=== PATIENT | female | born 1945 | race Caucasian/White ===

== ENCOUNTER → 2024-03-01 06:21 | Day surgery (SDC) | payer BC, SELFPAY | LOC: GI 06:21 | PROVIDERS: ATTENDING PHYSICIAN Internal Medicine Gastroenterology | DX: K29.50 Unspecified chronic gastritis without bleeding (principal); K22.70 Barrett's esophagus without dysplasia; K31.A0 Gastric intestinal metaplasia, unspecified; K31.7 Polyp of stomach and duodenum; K31.89 Other diseases of stomach and duodenum; Q39.8 Other congenital malformations of esophagus; R12 Heartburn; Z80.0 Family history of malignant neoplasm of digestive organs | CPT/HCPCS: 43239; 88305; 88342 ==

== ENCOUNTER 2024-04-15 09:45 | Day surgery (SDC) | payer BC, SELFPAY ==
[2024-04-15 10:45] VITALS: BMI 32.2
[2024-04-15 10:46] VITALS: BMI 32.2
[2024-04-15 10:57] VITALS: BP 129/75
[2024-04-15 12:03] VITALS: BP 102/49
[2024-04-15 12:15] VITALS: BP 110/71
[2024-04-15 12:23] VITALS: BP 107/77
== END 2024-04-15 12:30 | disposition home or self-care (01) ==
LOC: GI 09:45
PROVIDERS: ATTENDING PHYSICIAN Internal Medicine Gastroenterology
DX: K44.9 Diaphragmatic hernia without obstruction or gangrene (principal); K31.7 Polyp of stomach and duodenum
CPT/HCPCS: 43251; 88305

== ENCOUNTER → 2024-07-15 13:09 | Outpatient (REF) | payer BC, SELFPAY | LOC: RAD 13:09 | PROVIDERS: ATTENDING PHYSICIAN Emergency Medicine; FAMILY PHYSICIAN Family Medicine | DX: S29.9XXA Unspecified injury of thorax, initial encounter (principal) | CPT/HCPCS: 71101 ==

== ENCOUNTER 2024-07-21 13:21 | Emergency (ER) | payer BC, SELFPAY ==
[2024-07-21 13:32] VITALS: BP 150/92
[2024-07-21 14:02] VITALS: BMI 31.4
[2024-07-21 14:07] VITALS: BP 138/91
--- NOTE | 2024-07-21 14:08 | EDRN ---
Pt states that her pain started on the Thursday prior to the , when she went to urgent care for R sided chest pain at base of anterior ribs, when she awoke from a nap she had on the sofa. Pt had a normal xray at . Pain has kept getting worse
and saw her PCP on Thursday. Dr. Shea treated it as a M-S pain and placed her on mild narcotic and then placed her on steriods. Pt has been talking to PCP daily and was advised today to come to ER. PCP trying to get her an ABD US but she will have
to await 3 weeks. Pain is now 8/10, goes up to 10/10 sitting or lying. Better when pt is standing. Pt describes it as severe and chronic.
--- NOTE | 2024-07-21 15:02 | ED.GENMED ---
History of Present Illness
General
Chief Complaint: Chest Problem
Source: patient and spouse
Exam Limitations: none
Time Seen by Provider: 07/21/24 15:00
Nursing documentation reviewed up to this point in time: agreed with
History of Present Illness
History of Present Illness:
78-year-old female presents emergency room complaining of pain under her right breast and radiating to her back for the past week. She saw her primary care, had chest x-ray, was prescribed a steroid and pain medication. She has had shingles in the
past, and this is similar.
Past History
Past History
ED Past Medical History: Cancer (Breast), GERD, HTN, Hypercholesterolemia, Other (Renal calculi) and Other (Shingles)
ED Past Surgical History: Gynecological (Tubal ligation, D and E), Tonsilectomy and Other (Cystectomy, oral surgery)
Social History
Tobacco: Non-smoker
Alcohol: None
Drug: None
Personal:
Living: with family
Review of Systems
Review of Systems
Allergies reviewed?: Yes
All Other Systems: Not applicable
Constitutional: Reports no symptoms
EENT: Reports no symptoms
Respiratory: Reports no symptoms
Cardiac: Reports no symptoms
ABD/GI: Reports no symptoms
: Reports no symptoms
Musculoskeletal: Reports other (right rib pain)
Skin: Reports rash
Neurological: Reports no symptoms
Endocrine: Reports no symptoms
Hematologic/Lymphatic: Reports no symptoms
Psychiatric: Reports no symptoms
Phy Exam
Physical Exam
Physical Exam:
Physical Exam
General: no apparent distress, not acutely ill
Neck: supple. no meningeal signs. normal posterior pharynx
Heart: s1/s2 regular rate and rhythm, no murmur. equal radial
pulses.
HEENT: Pupils equal round reactive to light, EOMI
Lungs: no acute respiratory distress. clear bilaterally
Abdomen: normal bowel sounds. not tender. no CVAT
Neuro: alert and oriented. no focal neurological deficits cranial nerves II through XII intact
Skin: Dermatomal rash right chest and back, vesicular/papular
Psychiatric: well kept. interactive and cooperative
Extremities: no edema. no calf tenderness. negative homans. good distal pulses
Course
Orders/Labs/Results
Orders:
Orders
07/21/24 13:22
Electrocardiogram (*1) Urgent
Reason for Study: Other
Other Reason for Exam: back pain
07/21/24 13:23
EKG- Treatment ONCE
Vital Signs
Initial and Last Documented VS:
Initial Vital Signs
Temp Pulse Resp BP Pulse Ox
98.3 F 87 18 150/92 97
07/21/24 13:32 07/21/24 13:32 07/21/24 13:32 07/21/24 13:32 07/21/24 13:32
Last Documented Vital Signs
Temp Pulse Resp BP Pulse Ox
98.3 F 86 16 138/91 99
07/21/24 13:32 07/21/24 14:07 07/21/24 14:07 07/21/24 14:07 07/21/24 14:07
MDM/Problems Addressed
Differential Diagnosis Includes:
Rib fracture, ACS
MDM/Problems Addressed:
78-year-old female with right-sided shingles. Do not suspect dissection or PE. Stable for discharge. Treat with Valtrex.
*Pulse Oximetry
Patient hypoxic: no
*EKG
Interpreted by ED Provider?: Yes
EKG Intrepretation Date: 07/21/24
EKG Intrepretation Time: 13:30
Interpretation: normal
Comparison EKG: no comparison EKG present
Heart Rate: 83
Rate: normal
Rhythm: sinus
Alfred Station: normal axis
Interval: normal interval
QRS Pattern: normal QRS
Ischemia: no ischemia
*Critical Care Note
Total Time (30-74mins, 75-104mins- exclusive of procedures): Not Applicable
Data Reviewed
Review of Other/Old Records Reveals: Radiology Studies (Rib series 07/15/2024, no acute findings)
Patient Management
Social determinants of health affecting care: Living situation
Escalation/DeEscalation of care consider admission/obs:
Admit not indicated
ED Attending Note
-
Portions of this chart may have been created with voice recognition software.� Occasional wrong word or��sound alike� substitutions may have occurred due to the inherent limitations of voice recognition software.
Discharge Plan
Departure
Patient Disposition: Home (Routine Discharge)
Date of Disposition: 07/21/24
Time of Disposition: 15:22
Patient with high blood pressure during this ER visit?: Yes
Condition: Good
Discharge Problem:
Shingles
Instructions: Shingles, BLOOD PRESSURE
Prescriptions:
New
valacyclovir [Valtrex] 1 gram tablet
1,000 mg PO TID Qty: 30 0RF
gabapentin [Neurontin] 300 mg capsule
300 mg PO TID PRN (Reason: pain) Qty: 30 0RF
No Action
primidone 50 mg Tablet
50 mg PO HS
famotidine 40 mg Tablet
40 mg PO DAILY
simvastatin 20 mg Tablet
20 mg PO DAILY
lisinopril 20 mg Tablet
20 mg PO DAILY
hydrochlorothiazide 25 mg Tablet
25 mg PO DAILY
diltiazem HCl 180 mg Capsule,Extended Release 24 Hr
180 mg PO DAILY
omeprazole 20 mg Capsule,Delayed Release(Dr/Ec)
20 mg PO DAILY
valacyclovir 1 gram Tablet
1,000 mg PO DAILY
Referrals:
Elvin Valentine DO [Family Provider] -
Interventions
Interventions:
*Risk Screen - Suicide Last Done: 07/21/24 13:32
*General Assessment Last Done: 07/21/24 14:02
*Neglect/Abuse Screening Last Done: 07/21/24 14:02
ED- Fall Risk Assessment Last Done: 07/21/24 14:02
*ED COVID-19 Vaccine History Last Done: 07/21/24 14:02
ED- Cardiac Assessment Last Done: 07/21/24 14:19
ED- Pulmonary Assessment Last Done: 07/21/24 14:19
Discharge Date and Time
Print Language: PERSIAN
--- NOTE | 2024-07-21 15:07 | EDRN ---
Dr. Garcia in room w/ pt at this time.
[2024-07-21 15:34] VITALS: BP 146/104
== END 2024-07-21 15:36 | disposition home or self-care (01) ==
LOC: EMR 13:21
PROVIDERS: EMERGENCY PHYSICIAN Emergency Medicine; FAMILY PHYSICIAN Family Medicine
DX: B02.9 Zoster without complications (principal); K21.9 Gastro-esophageal reflux disease without esophagitis; I10 Essential (primary) hypertension; E78.00 Pure hypercholesterolemia, unspecified; Z85.3 Personal history of malignant neoplasm of breast; Z98.51 Tubal ligation status
CPT/HCPCS: 99283; 93005

== ENCOUNTER 2024-07-24 19:24 | Emergency (ER) | payer BC, SELFPAY ==
[2024-07-24 19:30] VITALS: BP 123/75
--- NOTE | 2024-07-24 20:26 | ED.GENMED ---
History of Present Illness
General
Chief Complaint: Flank Pain
Source: patient and spouse
Exam Limitations: none
Time Seen by Provider: 07/24/24 20:06
History of Present Illness
History of Present Illness:
This is a 78 year old female that comes in with c/o right sided 'extreme' pain under her breast and back. States that she was seen here on the and told that this was shingles. Patient has shingles before and states that this doesn't feel like
shingles. States that her pain is a 15/10. States that the pain has moved an it is in the upper back and under her breast. Sate that she has discomfort with deep breathing. Patient has been on Valtrex and gabapentin 300mg TID and this is not
helping. States that she has also taken Tylenol 500mg. States that she has pain in the middle of her chest and back and it goes up the back. States that she is feeling unsteady on her feet. Denies any fever, chills, chest pain, SOB, abd pain,
nausea, vomiting, diarrhea, headache, dizziness, urinary burning
Past History
Past History
ED Past Medical History: Cancer (Breast), GERD, HTN, Hypercholesterolemia and Other (Renal calculi, Tremors, Glaucoma, Shingles)
ED Past Surgical History: Gynecological (Tubal ligation, D and E), Tonsilectomy and Other (Cystectomy, oral surgery, Bilateral mastectomy with transflap and reconstruction. )
Social History
Tobacco: Non-smoker
Alcohol: Daily (Wine 2 glasses)
Drug: None
Personal:
Living: with family
Review of Systems
Review of Systems
All Other Systems: ROS reviewed and negative except as documented in HPI and ROS
Constitutional: Reports no symptoms; Denies fever or chills
EENT: Reports no symptoms
Respiratory: Denies cough or trouble breathing
Cardiac: Reports chest pain (into back)
ABD/GI: Reports constipated; Denies abdominal pain, nausea, vomiting or diarrhea
: Reports no symptoms; Denies dysuria, frequency or urgency
Musculoskeletal: Reports no symptoms
Skin: Reports no symptoms
Neurological: Reports other (Feels unsteady); Denies dizzy or headache
Psychiatric: Reports no symptoms
Phy Exam
General Physical Exam
General Presentation: mild distress
General age: appears stated age
General Skin: warm and dry
General Habitus: elderly
General Mental: alert
General Hydration: appears well hydrated
ENT Exam
ENT Exam: TM's normal, pharynx normal and neck supple
Eye Exam
Eye Exam: EOMI
Cardiovascular Exam
Cardiovascular Exam: regular rate/rhythm, no edema and normal peripheral pulses
Pulmonary Exam
Pulmonary Exam: lungs clear, no respiratory distress, no rales, chest non tender, no crackles, no rhonchi, no wheezing and no cough
Gastrointestinal Exam
Gastrointestinal Exam: normal bowel sounds, non tender, soft, no organomegaly, no pulsatile mass and non distended
Musculoskeletal Exam
Musculoskeletal Exam: full ROM and no edema
Skin Exam
Skin Exam: normal color, warm/dry, no rash (NO shingles rash noted on the right flank or under her breast), no petechia and other
Psychiatric Exam
Psychiatric Exam: normal mood/affect
Course
Orders/Labs/Results
Orders:
Orders
07/24/24 19:32
Electrocardiogram (*1) Urgent
Reason for Study: Chest Pain
EKG- Treatment ONCE
07/24/24 20:24
US Abdomen Complete/Upper Urgent
Comment:
Reason For Exam: Upper abd into back pain
07/24/24 20:25
HYDROmorphone [Dilaudid] 0.5 mg IV NOW STA
Ondansetron Injectable [Zofran] 4 mg IV NOW STA
CR Chest - 2 Views Urgent
Comment:
Reason For Exam: Pain right chest
07/24/24 20:52
Complete Blood Count/With Diff Urgent
Comprehensive Metabolic Panel Urgent
D-Dimer Urgent
Troponin I Urgent
07/24/24 22:37
HYDROmorphone [Dilaudid] 1 mg .ROUTE .STK-MED ONE
07/24/24 22:42
HYDROmorphone [Dilaudid] 1 mg IV NOW STA
07/25/24 00:00
CT Chest Pe Study Urgent
Reason For Exam: right sided chest pain, elevated -dimer
Abnormal Lab Results
07/24/24
20:52
RBC 3.58 L 10^6/uL
(4.20-5.40)
MCV 103.9 H fL
(81.0-99.0)
MCH 35.8 H pg
(27.0-31.0)
D-Dimer 0.87 H ug/mlFEU
(0.00-0.50)
BUN 34 H mg/dl
(7-17)
Creatinine 1.2 H mg/dL
(0.6-1.0)
Glucose 108 H mg/dl
(70-99)
07/24/24 20:52
07/24/24 20:52
Anemia. D-dimer elevation. Dehydration. Glucose nonfasting. Troponin <0.012, D-dimer 0.87,
Vital Signs
Initial and Last Documented VS:
Initial Vital Signs
Temp Pulse Resp BP Pulse Ox
98.1 F 88 18 123/75 95
07/24/24 19:30 07/24/24 19:30 07/24/24 19:30 07/24/24 19:30 07/24/24 19:30
Last Documented Vital Signs
Temp Pulse Resp BP Pulse Ox
98.1 F 73 13 111/67 96
07/24/24 19:30 07/25/24 00:45 07/25/24 00:45 07/25/24 00:00 07/25/24 00:45
MDM/Problems Addressed
Differential Diagnosis Includes:
Gallbladder disease PE, PNA
MDM/Problems Addressed:
This is a 78 year old female that comes in with c/o right under her breast and mid back and upper back pain. States that she has pain with deep breathing. States that she was told that this is most likely shingles.
Will check labs, Chest x-ray. Medicate for pain and get Ultrasound.
back into see patient. Explained that her blood work shows that she is a little anemic and that she is dehydrated. Patient D-dimer is elevated. Will get CT of the chest to r/o a PE.
Into see patient. Explained that her US is normal along with her CT of the chest. patient is negative for PE. Aortic dissection and there are no no gallstones or renal calculus. Explained to patient that this may still be Shingles and the rash has
just not come out as shingles affects the nerve endings. Patient to continue with the Valtrex as directed. Explained that she can alternate with Tylenol and Ibuprofen for pain. Will give patient a prescription for Oxycodone for stere pain. Patient
to follow up with the family doctor. Return with any concerns.
Chronic conditions affecting care: Cancer
Acute Exacerbation and/or Progression of Chronic Illness:
NA
*Radiology
Radiology exam reviewed: radiology read reviewed (US night hawk- No gallbladder wall thickening. CBD measures up to 4mm. Gallbladder wall measures up to 2mm. No pericholecystic fluid. No other acute abnormality within the visualized abdomen or
pelvis. CT night hawk- Adequate technical study. No acute pulmonary embolism. No thoracic aortic) and all reviewed NAD by ED Provider (CT cont- No thoracic aortic aneurysm or acute aortic dissection. Bibasilar atelectasis. Incidentals: Calcified
coronary atherosclerosis. No acute osseous abnormality. NO acute abnormality within the visualized abdomen. No Thoracic lymphadenopathy or suspicious lymph nodes. )
*Pulse Oximetry
Patient hypoxic: no
*Critical Care Note
Total Time (30-74mins, 75-104mins- exclusive of procedures): Not Applicable
ED Attending Note
-
Portions of this chart may have been created with voice recognition software.� Occasional wrong word or��sound alike� substitutions may have occurred due to the inherent limitations of voice recognition software.
Discharge Plan
Departure
Patient Disposition: Home (Routine Discharge)
Date of Disposition: 07/25/24
Time of Disposition: 01:10
Patient with high blood pressure during this ER visit?: No
Condition: Good
Covid-19: Not Applicable
Discharge Problem:
Acute right flank pain
Instructions: Flank Pain (DC)
Prescriptions:
New
oxycodone 5 mg tablet
5 mg PO Q6H PRN (Reason: Pain) Qty: 10 0RF
ondansetron 4 mg tablet,disintegrating
4 mg PO Q8H PRN (Reason: nausea and vomiting) Qty: 10 0RF
No Action
primidone 50 mg Tablet
50 mg PO HS
famotidine 40 mg Tablet
40 mg PO DAILY
simvastatin 20 mg Tablet
20 mg PO DAILY
lisinopril 20 mg Tablet
20 mg PO DAILY
hydrochlorothiazide 25 mg Tablet
25 mg PO DAILY
diltiazem HCl 180 mg Capsule,Extended Release 24 Hr
180 mg PO DAILY
omeprazole 20 mg Capsule,Delayed Release(Dr/Ec)
20 mg PO DAILY
valacyclovir 1 gram Tablet
1,000 mg PO DAILY
valacyclovir [Valtrex] 1 gram tablet
1,000 mg PO TID Qty: 30 0RF
gabapentin [Neurontin] 300 mg capsule
300 mg PO TID PRN (Reason: pain) Qty: 30 0RF
Referrals:
Colleen Preciado MD [Family Provider] - Follow up in 2-3 days
Activity Restrictions/Additional Instructions:
As discussed, your blood work shows some anemia. You are also dehydrated. Please increase your water intake to 8-8oz glasses daily. Your Ultrasound and CT of the chest is normal. This may still be pain due to shingles but no rash has erupted yet.
Please continue with the Valtrex that you were given. You may also use Tylenol 1000mg every 6 hours for pain and alternate with Ibuprofen 600mg every 6 hours with food. So if you take Tylenol at 9am, take the Ibuprofen at 12noon, Tylenol again at
3pm and Ibuprofen at 6pm and so forth. You have also had a prescription for Oxycodone sent to your pharmacy. PLEASE EAT BEFORE TAKING. . PLEASE ONLY USE THIS FOR SEVERE PAIN. PLEASE NO ALCOHOL WHEN TAKING OR DRIVING. A prescription for zofran to
help with any nausea/vomiting was also sent to your pharmacy. Follow up with the family doctor for recheck. IF YOU HAVE INCREASED OR CHANGING PAIN, OR YOU HAVE ANY OTHER CONCERNS PLEASE RETURN TO THE EMERGENCY ROOM.
Interventions
Interventions:
*Risk Screen - Suicide Last Done: 07/24/24 19:30
*General Assessment Last Done: 07/24/24 19:30
*Neglect/Abuse Screening Last Done: 07/24/24 19:30
ED- Fall Risk Assessment Last Done: 07/24/24 21:00
*ED COVID-19 Vaccine History Last Done: 07/24/24 20:39
TS-Nhsxib-[id number] Assessment Last Done: 07/24/24 21:00
ED-Female Genitourinary Assessment Last Done: 07/24/24 21:00
ED-Skin Assessment Last Done: 07/24/24 21:00
Discharge Date and Time
Print Language: MACEDONIAN
[2024-07-24 20:38] VITALS: BMI 35.0
[2024-07-24] MEDS: DILAUDID 0.5 MG IV (20:48)
[2024-07-24] MEDS: ZOFRAN 4 MG IV (20:48)
[2024-07-24 20:59] LABS: % Basophils 0.4 % (0-2); % Eosinophils 1.2 % (0-6); % Immature Granulocytes 0.3 % (0-0.5); % Lymphocytes 37.1 % (20.5-51.1); % Monocytes 7.5 % (1.7-9.3); % Neutrophils 53.5 % (42.2-75.2); Absolute Eosinophils 0.1 10^3/uL (0-0.7); Absolute Lymphocytes 2.7 10^3/uL (1.2-3.4); Absolute Monocytes 0.6 10^3/uL (0.1-0.6); Absolute Neutrophils 3.9 10^3/uL (1.4-6.5); Hematocrit 37.2 % (37.0-47.0); Hemoglobin 12.8 g/dL (12.0-16.0); Mean Corp Hgb Conc. 34.4 g/dL (33.0-37.0); Mean Corpuscular Hgb 35.8 pg (27.0-31.0); Mean Corpuscular Volume 103.9 fL (81.0-99.0); Mean Platelet Volume 9.1 fL (7.4-10.4); Nucleated Red Blood Cells % 0 %; Platelet Count 213 10^3/uL (130-400); Red Blood Cell Count 3.58 10^6/uL (4.20-5.40); Red Cell Dist. Width 11.9 % (11.5-14.5); White Blood Cell Count 7.3 10^3/uL (4.8-10.8)
[2024-07-24 21:13] LABS: ALT (SGPT) 30 U/L (0-35); AST (SGOT) 19 U/L (14-36); Albumin 4.3 g/dl (3.5-5.0); Alkaline Phosphatase 73 U/L (38-126); Blood Urea Nitrogen 34 mg/dl (7-17); Calcium 9.1 mg/dl (8.4-10.2); Carbon Dioxide 27 mmol/L (22-30); Chloride 104 mmol/L (98-107); Estimated Creatinine Clearance 43 ml/min; Glucose 108 mg/dl (70-99); Potassium 4.4 mmol/L (3.5-5.1); Sodium 139 mmol/L (135-145); Total Bilirubin 0.2 mg/dl (0.2-1.3); Total Protein 6.4 g/dl (6.3-8.2); eGFR 46.62
[2024-07-24 21:20] LABS: D-Dimer 0.87 ug/mlFEU (0.00-0.50)
[2024-07-24 21:25] LABS: Troponin I < 0.012 ng/ml
[2024-07-24 22:00] VITALS: BP 118/59
[2024-07-24] MEDS: DILAUDID 1 MG IV (22:43)
[2024-07-25] VITALS: BP 111/67
[2024-07-25 01:00] VITALS: BP 112/69
[2024-07-25] MEDS: ZOFRAN 4 MG IV (01:11)
[2024-07-25] MEDS: ROXICODONE 5 MG PO (01:13)
== END 2024-07-25 01:28 | disposition home or self-care (01) ==
LOC: EMR 19:24
PROVIDERS: Clinical Nurse Specialist Family Health; EMERGENCY PHYSICIAN Emergency Medicine; FAMILY PHYSICIAN Internal Medicine Gastroenterology
DX: R10.9 Unspecified abdominal pain (principal); R07.89 Other chest pain; I10 Essential (primary) hypertension; K21.9 Gastro-esophageal reflux disease without esophagitis; E78.00 Pure hypercholesterolemia, unspecified; Z85.3 Personal history of malignant neoplasm of breast; R79.1 Abnormal coagulation profile
CPT/HCPCS: 99285; 96374; 96375; 96376; 71046; 71275; 76700; 80053; 84484; 85025; 85379; 93005; Q9967

== ENCOUNTER → 2024-12-30 11:43 | Outpatient (REF) | payer BC, SELFPAY | LOC: HWRAD 11:43 | PROVIDERS: ATTENDING PHYSICIAN Internal Medicine Gastroenterology; FAMILY PHYSICIAN Family Medicine | DX: R14.0 Abdominal distension (gaseous) (principal) | CPT/HCPCS: 74018 ==

== ENCOUNTER 2025-06-01 06:21 | Day surgery (SDC) | payer BC, SELFPAY | END 2025-06-01 11:32 | disposition home or self-care (01) | LOC: GI 06:21 | PROVIDERS: ATTENDING PHYSICIAN Internal Medicine Gastroenterology; FAMILY PHYSICIAN Family Medicine | DX: R12 Heartburn (principal); K31.7 Polyp of stomach and duodenum; K31.89 Other diseases of stomach and duodenum | CPT/HCPCS: 43239; 88305; 88342 ==

== ENCOUNTER → 2025-08-30 12:13 | Outpatient (REF) | payer BC, SELFPAY | LOC: HWRAD 12:13 | PROVIDERS: ATTENDING PHYSICIAN Family Medicine | DX: I10 Essential (primary) hypertension (principal); R53.83 Other fatigue; M54.9 Dorsalgia, unspecified; R10.10 Upper abdominal pain, unspecified | CPT/HCPCS: 71046 ==